=== PATIENT | male | born 1965 | race Two or more races ===

== ENCOUNTER 2022-06-04 09:07 | Inpatient (IN) | payer MEDICAID, OTHER ==
[~2022-06-04] VITALS: Ht 177.8 cm; Wt 117.7 kg
[2022-06-04] MEDS ORDERED: dilTIAZem 25 MG/5 ML VIAL IV ONE ×2 (09:30)
[2022-06-04] MEDS ORDERED: LORazepam 2MG/ML-1ML VIAL IV ONE ×2 (09:30)
[2022-06-04] MEDS ORDERED: SODIUM CHLORIDE 0.9% 1,000 ML IV ONE (09:30)
[2022-06-04] MEDS ORDERED: chlordiazePOXIDE HCL 25 MG CAP PO ONE (09:30)
[2022-06-04 09:44] LABS: Basophils # (auto) 0 10 ^3/uL (0-0.2); Basophils % (auto) 0.4 % (0.0-2.0); Eosinophils # (auto) 0 10 ^3/uL (0-0.8); Eosinophils % (auto) 0.1 % (0.0-7.0); Hemoglobin 17.4 g/dL (13.5-17.5); Lymphocytes # (auto) 1.4 10 ^3/uL (0.4-5.4); Lymphocytes % (auto) 18.7 % (10.0-50.0); Mean Corpuscular Hemoglobin 32.9 pg (28.0-32.0); Mean Corpuscular Hgb Conc. 36.1 g/dL (32.0-36.0); Monocytes # (auto) 0.3 10 ^3/uL (0-1.3); Monocytes % (auto) 3.7 % (0.0-12.0); Neutrophils # (auto) 5.8 10 ^3/uL (1.6-8.6); Neutrophils % (auto) 77.1 % (37.0-80.0); Nucleated Red Blood Cells % 0.2 %; Red Blood Cells 5.28 10^6/uL (4.5-5.90); Red Cell Distribution Width 14.8 % (11.8-14.3); White Blood Cell 7.5 10^3/uL (4.4-10.8)
[2022-06-04 09:56] LABS: Albumin 4.8 g/dL (3.4-5.0); Calcium 9.1 mg/dL (8.5-10.1); Magnesium 1.4 mg/dL (1.6-2.6); Potassium 3.4 mmol/L (3.5-5.1)
[2022-06-04 10:01] LABS: BUN/Creatinine Ratio 4.1; Bilirubin, Total 3.6 mg/dL (0.2-1.0); Total Protein 9.4 g/dL (6.4-8.2)
[2022-06-04] MEDS ORDERED: dilTIAZem 120MG ER CAP PO ONE (10:15)
[2022-06-04 10:39] LABS: Lactic Acid w/Reflex 12.4 mmol/L (0.4-2.0)
[2022-06-04] MEDS ORDERED: POTASSIUM EFFERVESENT TAB 25 MEQ PO ONE (12:30)
[2022-06-04] MEDS ORDERED: dilTIAZem 125mg/125ml BAG KIT 125 ML IV ONE (12:30)
[2022-06-04] MEDS ORDERED: MAGNESIUM SULFATE 1GM/100ML 100 ML IV ONE ×2 (12:30→15:15)
[2022-06-04] MEDS ORDERED: DOCUSATE SOD 100 MG CAP PO PRN (14:00)
[2022-06-04] MEDS ORDERED: ONDANSETRON HCL 4 MG/2 ML VIAL IV PRN (14:00)
[2022-06-04] MEDS ORDERED: chlordiazePOXIDE HCL 25 MG CAP PO PRN (14:00)
[2022-06-04] MEDS ORDERED: SODIUM CHLORIDE 0.9% 1,000 ML IV SCH (14:00)
[2022-06-04] MEDS ORDERED: MORPHINE SULFATE INJ 2 MG/ml SYRG IV PRN (14:00)
[2022-06-04] MEDS ORDERED: NITROGLYCERIN 0.4 MG SL TAB SL PRN (14:00)
[2022-06-04] MEDS ORDERED: DEXTROSE (50%) 50ML SYRG IV PRN (14:15)
[2022-06-04] MEDS ORDERED: ENOXAPARIN SOD 40 MG/0.4 ML SYRINGE SC ONE (14:45)
[2022-06-04 14:54] LABS: Folate (Folic Acid) 14.62 ng/mL (5.38-24)
[2022-06-04] MEDS ORDERED: METOPROLOL TARTRATE 1MG/1ML-5ML VIAL IV ONE (15:15)
[2022-06-04] MEDS ORDERED: DIGOXIN (250MCG/ML) 2 ML AMPULE IV ONE (15:15)
[2022-06-04] MEDS: ACCU-CHEK COMFORT CURVE STRIP VI SCH ×2 (18:02→23:41)
[2022-06-04] MEDS: InsuLIN REG 1unit/0.01ml Soln (100units/ml) SC SCH ×2 (18:02→23:41)
[2022-06-04] MEDS: FOLIC ACID 1 MG, MULTIPLE VITAMIN 10 ML, MAGNESIUM SULF SDV 50% 8 MEQ, THIAMINE INJ 100... INJ SCH ×5 (18:04)
[2022-06-04] MEDS: MAGNESIUM SULFATE 1GM/100ML 100 ML IV SCH ×2 (18:43→23:29)
[2022-06-04] MEDS: ENOXAPARIN SOD 120 MG/0.8 ML SYRINGE SC SCH (23:37)
[2022-06-05 05:33] LABS: Basophils # (auto) 0 10 ^3/uL (0-0.2); Basophils % (auto) 0.6 % (0.0-2.0); Eosinophils # (auto) 0 10 ^3/uL (0-0.8); Eosinophils % (auto) 0.6 % (0.0-7.0); Hemoglobin 13.4 g/dL (13.5-17.5); Lymphocytes # (auto) 2.1 10 ^3/uL (0.4-5.4); Lymphocytes % (auto) 44.9 % (10.0-50.0); Mean Corpuscular Hemoglobin 32.5 pg (28.0-32.0); Mean Corpuscular Hgb Conc. 36.3 g/dL (32.0-36.0); Mean Corpuscular Volume 89.6 fL (80.0-100.0); Monocytes # (auto) 0.4 10 ^3/uL (0-1.3); Monocytes % (auto) 8.4 % (0.0-12.0); Neutrophils # (auto) 2.2 10 ^3/uL (1.6-8.6); Neutrophils % (auto) 45.5 % (37.0-80.0); Nucleated Red Blood Cells % 0.1 %; Red Blood Cells 4.13 10^6/uL (4.5-5.90); Red Cell Distribution Width 14.6 % (11.8-14.3); White Blood Cell 4.7 10^3/uL (4.4-10.8)
[2022-06-05 05:54] LABS: Albumin 3.5 g/dL (3.4-5.0); Calcium 8.2 mg/dL (8.5-10.1); Magnesium 2.4 mg/dL (1.6-2.6); Potassium 3.3 mmol/L (3.5-5.1)
[2022-06-05 05:56] LABS: Cholesterol 172 mg/dL (< 200); HDL Cholesterol 69 mg/dL (40-59); LDL Cholesterol 109 mg/dL (< 100); Triglycerides 80 mg/dL (< 150)
[2022-06-05 05:58] LABS: BUN/Creatinine Ratio 9.5; Bilirubin, Total 3.6 mg/dL (0.2-1.0); Total Protein 6.7 g/dL (6.4-8.2)
[2022-06-05] MEDS: InsuLIN REG 1unit/0.01ml Soln (100units/ml) SC SCH ×4 (06:39→22:00)
[2022-06-05] MEDS: ACCU-CHEK COMFORT CURVE STRIP VI SCH ×4 (06:39→22:00)
[2022-06-05] MEDS ORDERED: DIGOXIN (250MCG/ML) 2 ML AMPULE IV ONE (09:15)
[2022-06-05] MEDS ORDERED: POTASSIUM CHL 20 Meq TABLET PO ONE (09:15)
[2022-06-05] MEDS: POTASSIUM CHL 20 Meq TABLET PO SCH (09:38)
[2022-06-05] MEDS: ENOXAPARIN SOD 120 MG/0.8 ML SYRINGE SC SCH ×2 (09:40→21:26)
[2022-06-05] MEDS ORDERED: ENOXAPARIN SOD 40 MG/0.4 ML SYRINGE SC SCH (10:00)
[2022-06-05] MEDS ORDERED: METOPROLOL SUCCINATE XL 50 MG TAB PO SCH (10:00)
[2022-06-05] MEDS ORDERED: FOLIC ACID 1 MG TAB PO SCH (10:00)
[2022-06-05] MEDS ORDERED: PANTOPRAZOLE 40 MG/10 ML VIAL INJ IV SCH (10:00)
[2022-06-05] MEDS ORDERED: MULTIPLE VITAMIN TAB PO SCH (10:00)
[2022-06-05 10:12] LABS: Urine Bacteria FEW /hpf (None Seen); Urine Blood Negative /uL (Negative); Urine Budding Yeast MODERATE /hpf (None Seen); Urine Specific Gravity 1.023 (1.001-1.035); Urine WBC 9 /hpf (0 - 3); Urine WBC Clumps PRESENT /hpf (None Seen)
[2022-06-05 10:22] LABS: Amphetamine Screen, Urine NEGATIVE (NEGATIVE); Barbiturate Scree,Urine NEGATIVE (NEGATIVE); Benzodiazephine Screen, Urine POSITIVE (NEGATIVE); Cannabinoid Screen, Urine NEGATIVE (NEGATIVE); Cocaine Screen, Urine NEGATIVE (NEGATIVE); Opiate Scree,Urine POSITIVE (NEGATIVE); Phencyclidine Screen, Urine NEGATIVE (NEGATIVE)
[2022-06-05] MEDS ORDERED: FOLIC ACID 1 MG, MULTIPLE VITAMIN 10 ML, MAGNESIUM SULF SDV 50% 8 MEQ, THIAMINE INJ 100... INJ SCH ×5 (12:00)
[2022-06-05] MEDS: FOLIC ACID 1 MG, MULTIPLE VITAMIN 10 ML, MAGNESIUM SULF SDV 50% 8 MEQ, THIAMINE INJ 100... INJ SCH ×5 (12:53)
[2022-06-05 14:22] VITALS: BP 129/69
[2022-06-05 14:47] VITALS: BP 129/69
[2022-06-05] MEDS ORDERED: GABA300C10 PO (16:36)
[2022-06-05] MEDS ORDERED: POTA1TAB4 PO (16:36)
[2022-06-05] MEDS ORDERED: APIX5TAB PO (16:36)
[2022-06-05] MEDS ORDERED: HYDR50CA2 PO (16:36)
[2022-06-05] MEDS ORDERED: FURO40TA4 PO (16:36)
[2022-06-05] MEDS ORDERED: DOXE50CA PO (16:36)
[2022-06-05] MEDS ORDERED: FLUO20TA34 PO (16:36)
[2022-06-05] MEDS ORDERED: METH750T22 PO (16:36)
[2022-06-05] MEDS ORDERED: MET25T PO (16:36)
[2022-06-05] MEDS ORDERED: CLON0.1T PO (16:36)
[2022-06-05 17:00] VITALS: BP 137/69
[2022-06-05 20:00] VITALS: BP 129/59
[2022-06-05] MEDS: METOPROLOL TARTRATE 50 MG TAB PO SCH (21:26)
[2022-06-05 22:00] VITALS: BP 129/59
[2022-06-06 04:36] VITALS: BP 136/85
[2022-06-06] MEDS: InsuLIN REG 1unit/0.01ml Soln (100units/ml) SC SCH ×2 (06:33→11:30)
[2022-06-06] MEDS: ACCU-CHEK COMFORT CURVE STRIP VI SCH ×2 (06:33→11:30)
[2022-06-06 08:49] VITALS: BP 143/85
[2022-06-06] MEDS ORDERED: DIGOXIN 0.125 MG TAB PO SCH (10:00)
[2022-06-06] MEDS: POTASSIUM CHL 20 Meq TABLET PO SCH (10:13)
[2022-06-06] MEDS: METOPROLOL TARTRATE 50 MG TAB PO SCH (10:14)
[2022-06-06] MEDS: ENOXAPARIN SOD 120 MG/0.8 ML SYRINGE SC SCH (10:15)
[2022-06-06] MEDS: FOLIC ACID 1 MG, MULTIPLE VITAMIN 10 ML, MAGNESIUM SULF SDV 50% 8 MEQ, THIAMINE INJ 100... INJ SCH ×5 (12:00)
[2022-06-06] MEDS ORDERED: APIX5TAB PO (12:20)
[2022-06-06] MEDS ORDERED: MET50T PO (12:20)
[2022-06-06 13:00] VITALS: BP 135/93
[2022-06-06 15:01] VITALS: BP 135/93
[2022-06-06] MEDS ORDERED: APIXABAN 5 MG TAB PO SCH (22:00)
== END 2022-06-06 15:50 | disposition home or self-care (01) | DRG 201 ==
LOC: ER 09:07 → TELE 14:05 → TELE-CENTR 06-05 14:24
PROVIDERS: ADMIT Nurse Practitioner Family; ATTEND Student in an Organized Health Care Education/Training Program
DX: I48.91 Unspecified atrial fibrillation (principal); I11.0 Hypertensive heart disease with heart failure; I50.9 Heart failure, unspecified; E66.9 Obesity, unspecified; E83.42 Hypomagnesemia; E86.0 Dehydration; E87.6 Hypokalemia; F10.129 Alcohol abuse with intoxication, unspecified; F32.A Depression, unspecified; Z20.822 Contact with and (suspected) exposure to COVID-19; F10.139 Alcohol abuse with withdrawal, unspecified; R79.89 Other specified abnormal findings of blood chemistry; F41.9 Anxiety disorder, unspecified; I16.0 Hypertensive urgency; Z79.01 Long term (current) use of anticoagulants; Z79.899 Other long term (current) drug therapy; Z68.37 Body mass index [BMI] 37.0-37.9, adult
CPT/HCPCS: 36415; 71045; 80053; 80061; 80307; 81001; 82607; 82746; 82962; 83036; 83605; 83735; 83880; 84100; 84132; 84443; 84484; 85025; 93005; 93306; 96361; 96365; 96375; 99291; C9113; G0378; J2405

== ENCOUNTER 2022-09-16 05:54 | Inpatient (IN) | payer MEDICAID ==
[~2022-09-16] VITALS: Ht 175.3 cm; Wt 117.9 kg
[~2022-09-16 05:54] MED LIST: APIX5TAB PO; CLON0.1T PO; DOXE50CA PO; FLUO20TA34 PO; FURO40TA4 PO; GABA300C10 PO; HYDR50CA2 PO; MET25T PO; MET50T PO; METH750T22 PO; POTA1TAB4 PO
[2022-09-16 06:28] LABS: Basophils # (auto) 0 10 ^3/uL (0-0.2); Eosinophils # (auto) 0 10 ^3/uL (0-0.8); Eosinophils % (auto) 0.1 % (0.0-7.0); Hemoglobin 13.4 g/dL (13.5-17.5); Mean Corpuscular Hemoglobin 35.2 pg (28.0-32.0); Monocytes # (auto) 0.6 10 ^3/uL (0-1.3); Monocytes % (auto) 5.9 % (0.0-12.0)
[2022-09-16 06:31] LABS: Basophils % (auto) 0.3 % (0.0-2.0); Hematocrit 38.4 % (41.0-53.0); Lymphocytes % (auto) 19.3 % (10.0-50.0); Mean Corpuscular Hgb Conc. 34.8 g/dL (32.0-36.0); Mean Corpuscular Volume 101.1 fL (80.0-100.0); Neutrophils # (auto) 7.5 10 ^3/uL (1.6-8.6); Neutrophils % (auto) 74.4 % (37.0-80.0); Nucleated Red Blood Cells % 0.2 %; White Blood Cell 10.2 10^3/uL (4.4-10.8)
[2022-09-16 06:52] LABS: Albumin 3.6 g/dL (3.4-5.0); Calcium 8.1 mg/dL (8.5-10.1)
[2022-09-16 06:54] LABS: BUN/Creatinine Ratio 4.7
[2022-09-16 06:56] LABS: Potassium 2.9 mmol/L (3.5-5.1)
[2022-09-16] MEDS ORDERED: POTASSIUM CHL 20 Meq TABLET PO ONE (07:00)
[2022-09-16 07:15] LABS: Bilirubin, Total 2.4 mg/dL (0.2-1.0); Total Protein 6.9 g/dL (6.4-8.2)
[2022-09-16] MEDS ORDERED: HYDROmorphone HCL 2 MG/ML VL/or syr IV ONE (08:00)
[2022-09-16] MEDS ORDERED: METOCLOPRAMIDE HCL 5MG/ml INJ 2ml VIAL IV ONE (08:00)
[2022-09-16] MEDS ORDERED: SODIUM CHLORIDE 0.9% 1,000 ML IV ONE (08:00)
[2022-09-16] MEDS ORDERED: SODIUM CHLORIDE 0.9% 500 ML IVB ONE (08:00)
[2022-09-16 08:54] LABS: Urine Bacteria NONE SEEN /hpf (None Seen); Urine Blood Negative /uL (Negative); Urine Hyaline Cast FEW /lpf (0 - 2); Urine Specific Gravity 1.007 (1.001-1.035); Urine WBC <1 /hpf (0 - 3)
[2022-09-16] MEDS ORDERED: dilTIAZem 25 MG/5 ML VIAL IV ONE (13:15)
[2022-09-16] MEDS ORDERED: cefTRIAXone 1GM/50ML D5W 50 ML IV ONE (13:15)
[2022-09-16] MEDS ORDERED: THIAMINE HCL 100 MG TAB PO ONE (13:45)
[2022-09-16] MEDS ORDERED: B-COMPLEX W/ C & FOLIC ACID(NEPHROVITE TAB) PO ONE (13:45)
[2022-09-16] MEDS ORDERED: NITROGLYCERIN 0.4 MG SL TAB SL PRN (13:45)
[2022-09-16] MEDS ORDERED: PANTOPRAZOLE 40 MG/10 ML VIAL INJ IV ONE (13:45)
[2022-09-16] MEDS ORDERED: ACETAMINOPHEN 325 MG TAB PO PRN (13:45)
[2022-09-16] MEDS ORDERED: LORazepam 0.5 MG TAB PO PRN (13:45)
[2022-09-16] MEDS ORDERED: MORPHINE SULFATE INJ 2 MG/ml SYRG IV PRN (13:45)
[2022-09-16] MEDS ORDERED: AZITHROMYCIN 500MG/ 250ML 250 ML IV ONE (13:45)
[2022-09-16] MEDS ORDERED: LORazepam 2MG/ML-1ML VIAL IV ONE (13:57)
[2022-09-16] MEDS ORDERED: cloNIDine HCL 0.1 MG TAB PO PRN (14:00)
[2022-09-16] MEDS ORDERED: POTASSIUM CHL 20MEQ/100ML 100 ML IV ONE (14:00)
[2022-09-16] MEDS ORDERED: hydrALAZINE HCL 20 MG/ML VL IV PRN (14:00)
[2022-09-16] MEDS: SODIUM CHLORIDE 0.9% 1,000 ML IV SCH (14:25)
[2022-09-16] MEDS: MAGNESIUM SULFATE 1GM/100ML 100 ML IV SCH ×2 (14:25→14:30)
[2022-09-16] MEDS: GABAPENTIN 300 MG CAP PO SCH ×2 (14:36→23:16)
[2022-09-16 14:53] LABS: INR 1.18 (0.9-1.15)
[2022-09-16] MEDS ORDERED: ASPirin 325 MG TAB PO ONE (15:00)
[2022-09-16] MEDS: METOPROLOL TARTRATE 50 MG TAB PO SCH (16:43)
[2022-09-16] MEDS: LORazepam 2MG/ML-1ML VIAL IV PRN (17:02)
[2022-09-17] MEDS ORDERED: ONDANSETRON HCL 4 MG/2 ML VIAL IV PRN (03:30)
[2022-09-17 04:55] LABS: Eosinophils # (auto) 0 10 ^3/uL (0-0.8); Hematocrit 37.5 % (41.0-53.0); Mean Corpuscular Hgb Conc. 34.7 g/dL (32.0-36.0); Red Cell Distribution Width 14.4 % (11.8-14.3)
[2022-09-17 04:58] LABS: Basophils # (auto) 0.1 10 ^3/uL (0-0.2); Basophils % (auto) 0.8 % (0.0-2.0); Lymphocytes % (auto) 12.3 % (10.0-50.0); Mean Corpuscular Hemoglobin 35.1 pg (28.0-32.0); Mean Corpuscular Volume 101.1 fL (80.0-100.0); Monocytes # (auto) 0.5 10 ^3/uL (0-1.3); Monocytes % (auto) 5.8 % (0.0-12.0); Neutrophils # (auto) 6.4 10 ^3/uL (1.6-8.6); Neutrophils % (auto) 81.1 % (37.0-80.0); Nucleated Red Blood Cells % 0.1 %; Red Blood Cells 3.71 10^6/uL (4.5-5.90); White Blood Cell 7.9 10^3/uL (4.4-10.8)
[2022-09-17 05:06] LABS: Albumin 3.1 g/dL (3.4-5.0); BUN/Creatinine Ratio 10.8; Calcium 7.8 mg/dL (8.5-10.1); Potassium 3.8 mmol/L (3.5-5.1)
[2022-09-17 05:09] LABS: Bilirubin, Total 3.3 mg/dL (0.2-1.0); Total Protein 6.8 g/dL (6.4-8.2)
[2022-09-17] MEDS: GABAPENTIN 300 MG CAP PO SCH ×3 (05:33→21:24)
[2022-09-17] MEDS: SODIUM CHLORIDE 0.9% 1,000 ML IV SCH ×2 (05:33→23:05)
[2022-09-17] MEDS: METOPROLOL TARTRATE 50 MG TAB PO SCH ×2 (06:35→21:24)
[2022-09-17] MEDS: cefTRIAXone 1GM/50ML D5W 50 ML IV SCH (09:19)
[2022-09-17] MEDS ORDERED: APIXABAN 5 MG TAB PO SCH (10:00)
[2022-09-17] MEDS ORDERED: AZITHROMYCIN 500MG/ 250ML 250 ML IV SCH (10:00)
[2022-09-17] MEDS ORDERED: ENOXAPARIN SOD 40 MG/0.4 ML SYRINGE SC SCH (10:00)
[2022-09-17] MEDS: APIXABAN 5 MG TAB PO SCH (10:35)
[2022-09-17] MEDS: PANTOPRAZOLE 40 MG/10 ML VIAL INJ IV SCH (10:35)
[2022-09-17] MEDS: B-COMPLEX W/ C & FOLIC ACID(NEPHROVITE TAB) PO SCH (10:35)
[2022-09-17] MEDS: ASPirin 81 mg TAB PO SCH (10:35)
[2022-09-17] MEDS: THIAMINE HCL 100 MG TAB PO SCH (10:35)
[2022-09-17] MEDS: DOXYCYCLINE 100MG/250ML 250 ML IV SCH ×2 (10:36→21:23)
[2022-09-17] MEDS: FLUoxetine HCL 20 MG CAP PO SCH (10:36)
[2022-09-17] MEDS: DOXEPIN HCL 25 MG CAPSULE PO SCH (10:58)
[2022-09-17] MEDS ORDERED: chlordiazePOXIDE HCL 25 MG CAP PO PRN (11:00)
[2022-09-17 12:59] LABS: Hepatitis A Ab IgM Negative
[2022-09-17 13:00] LABS: Hepatitis B Core IgM Negative; Hepatitis C Antibody Negative (Negative)
[2022-09-17 13:14] VITALS: BP 122/78
[2022-09-17 17:45] LABS: Cholesterol 173 mg/dL (< 200); HDL Cholesterol 73 mg/dL (40-59); LDL Cholesterol 97 mg/dL (< 100); Triglycerides 112 mg/dL (< 150)
[2022-09-17 18:56] LABS: Alcohol, Urine < 3.0 mg/dL (0-10); Amphetamine Screen, Urine NEGATIVE (NEGATIVE); Barbiturate Scree,Urine NEGATIVE (NEGATIVE); Benzodiazephine Screen, Urine NEGATIVE (NEGATIVE); Cannabinoid Screen, Urine NEGATIVE (NEGATIVE); Cocaine Screen, Urine NEGATIVE (NEGATIVE); Opiate Scree,Urine NEGATIVE (NEGATIVE); Phencyclidine Screen, Urine NEGATIVE (NEGATIVE)
[2022-09-17 22:00] VITALS: BP 141/78
[2022-09-18] MEDS: LORazepam 2MG/ML-1ML VIAL IV PRN
[2022-09-18 05:00] VITALS: BP 130/87
[2022-09-18] MEDS: GABAPENTIN 300 MG CAP PO SCH ×3 (06:19→21:14)
[2022-09-18 08:04] LABS: Basophils # (auto) 0 10 ^3/uL (0-0.2); Nucleated Red Blood Cells % 0.1 %
[2022-09-18 08:08] LABS: Basophils % (auto) 0.5 % (0.0-2.0); Eosinophils # (auto) 0.1 10 ^3/uL (0-0.8); Eosinophils % (auto) 0.7 % (0.0-7.0); Hematocrit 33.3 % (41.0-53.0); Lymphocytes # (auto) 2.2 10 ^3/uL (0.4-5.4); Lymphocytes % (auto) 27.4 % (10.0-50.0); Mean Corpuscular Hemoglobin 36.1 pg (28.0-32.0); Mean Corpuscular Hgb Conc. 36.1 g/dL (32.0-36.0); Mean Corpuscular Volume 100.1 fL (80.0-100.0); Monocytes # (auto) 0.3 10 ^3/uL (0-1.3); Monocytes % (auto) 4.3 % (0.0-12.0); Neutrophils # (auto) 5.3 10 ^3/uL (1.6-8.6); Neutrophils % (auto) 67.1 % (37.0-80.0); Red Blood Cells 3.33 10^6/uL (4.5-5.90); White Blood Cell 7.9 10^3/uL (4.4-10.8)
[2022-09-18 08:24] LABS: Calcium 7.8 mg/dL (8.5-10.1); Potassium 3.3 mmol/L (3.5-5.1)
[2022-09-18] MEDS: cefTRIAXone 1GM/50ML D5W 50 ML IV SCH (09:14)
[2022-09-18] MEDS: SODIUM CHLORIDE 0.9% 1,000 ML IV SCH (09:17)
[2022-09-18] MEDS: FLUoxetine HCL 20 MG CAP PO SCH (09:25)
[2022-09-18] MEDS: THIAMINE HCL 100 MG TAB PO SCH (09:25)
[2022-09-18] MEDS: B-COMPLEX W/ C & FOLIC ACID(NEPHROVITE TAB) PO SCH (09:26)
[2022-09-18] MEDS: APIXABAN 5 MG TAB PO SCH (09:26)
[2022-09-18] MEDS: ASPirin 81 mg TAB PO SCH (09:26)
[2022-09-18] MEDS: METOPROLOL TARTRATE 50 MG TAB PO SCH ×2 (09:27→21:14)
[2022-09-18] MEDS: DOXYCYCLINE 100MG/250ML 250 ML IV SCH ×2 (09:27→21:14)
[2022-09-18] MEDS: PANTOPRAZOLE 40 MG/10 ML VIAL INJ IV SCH (09:27)
[2022-09-18 09:30] VITALS: BP 128/77
[2022-09-18] MEDS: DOXEPIN HCL 25 MG CAPSULE PO SCH (10:00)
[2022-09-18 13:00] VITALS: BP 158/87
[2022-09-18 16:50] VITALS: BP 140/86
[2022-09-18 22:00] VITALS: BP 128/84
[2022-09-19 05:00] VITALS: BP 121/79
[2022-09-19] MEDS: GABAPENTIN 300 MG CAP PO SCH ×2 (06:05→14:43)
[2022-09-19 07:06] LABS: Basophils # (auto) 0 10 ^3/uL (0-0.2); Basophils % (auto) 0.5 % (0.0-2.0); Eosinophils # (auto) 0.1 10 ^3/uL (0-0.8); Eosinophils % (auto) 0.9 % (0.0-7.0); Hemoglobin 11.5 g/dL (13.5-17.5); Monocytes # (auto) 0.4 10 ^3/uL (0-1.3)
[2022-09-19 07:09] LABS: Lymphocytes # (auto) 1.6 10 ^3/uL (0.4-5.4); Lymphocytes % (auto) 22.2 % (10.0-50.0); Mean Corpuscular Hemoglobin 35.8 pg (28.0-32.0); Mean Corpuscular Hgb Conc. 35.8 g/dL (32.0-36.0); Mean Corpuscular Volume 99.9 fL (80.0-100.0); Monocytes % (auto) 5.4 % (0.0-12.0); Neutrophils # (auto) 5.2 10 ^3/uL (1.6-8.6); Red Cell Distribution Width 13.8 % (11.8-14.3); White Blood Cell 7.3 10^3/uL (4.4-10.8)
[2022-09-19 07:30] LABS: Calcium 7.6 mg/dL (8.5-10.1); Potassium 3.2 mmol/L (3.5-5.1)
[2022-09-19 07:32] LABS: BUN/Creatinine Ratio 15.9
[2022-09-19 09:07] VITALS: BP 121/79
[2022-09-19] MEDS: DOXEPIN HCL 25 MG CAPSULE PO SCH (10:00)
[2022-09-19] MEDS: cefTRIAXone 1GM/50ML D5W 50 ML IV SCH (10:18)
[2022-09-19] MEDS: PANTOPRAZOLE 40 MG/10 ML VIAL INJ IV SCH (10:18)
[2022-09-19] MEDS: FLUoxetine HCL 20 MG CAP PO SCH (10:19)
[2022-09-19] MEDS: APIXABAN 5 MG TAB PO SCH (10:19)
[2022-09-19] MEDS: B-COMPLEX W/ C & FOLIC ACID(NEPHROVITE TAB) PO SCH (10:19)
[2022-09-19] MEDS: ASPirin 81 mg TAB PO SCH (10:19)
[2022-09-19] MEDS: SODIUM CHLORIDE 0.9% 1,000 ML IV SCH (10:20)
[2022-09-19] MEDS: METOPROLOL TARTRATE 50 MG TAB PO SCH (10:20)
[2022-09-19] MEDS: THIAMINE HCL 100 MG TAB PO SCH (10:20)
[2022-09-19] MEDS ORDERED: POTASSIUM EFFERVESENT TAB 25 MEQ GT ONE (11:00)
[2022-09-19] MEDS ORDERED: AMOX500T86 PO (11:03)
[2022-09-19] MEDS: DOXYCYCLINE 100MG/250ML 250 ML IV SCH (11:33)
[2022-09-19 13:00] VITALS: BP 112/79
[2022-09-19 13:59] VITALS: BP 121/79
[2022-09-20] MEDS ORDERED: AMOX500T86 PO (11:00)
== END 2022-09-19 15:27 | disposition home or self-care (01) | DRG 198 ==
LOC: ER 05:54 → TELE 13:46 → TELE-E-ADS 09-17 11:58 → TELE-EAST 09-17 18:26
PROVIDERS: ADMIT Nurse Practitioner Family; ATTEND Internal Medicine Pulmonary Disease
DX: I24.9 Acute ischemic heart disease, unspecified (principal); I85.10 Secondary esophageal varices without bleeding; I11.0 Hypertensive heart disease with heart failure; J18.9 Pneumonia, unspecified organism; I50.9 Heart failure, unspecified; E66.01 Morbid (severe) obesity due to excess calories; Z20.822 Contact with and (suspected) exposure to COVID-19; K70.30 Alcoholic cirrhosis of liver without ascites; E83.42 Hypomagnesemia; E87.6 Hypokalemia; F10.229 Alcohol dependence with intoxication, unspecified; F10.239 Alcohol dependence with withdrawal, unspecified; I16.0 Hypertensive urgency; I48.0 Paroxysmal atrial fibrillation; K76.0 Fatty (change of) liver, not elsewhere classified; Z79.01 Long term (current) use of anticoagulants; Z91.199 Patient's noncompliance with other medical treatment and regimen due to unspecified reason; Z82.0 Family history of epilepsy and other diseases of the nervous system; Z68.38 Body mass index [BMI] 38.0-38.9, adult
CPT/HCPCS: 36415; 71045; 74176; 80048; 80053; 80061; 80074; 80307; 81001; 82140; 83036; 83690; 83735; 84443; 84484; 85025; 85379; 85610; 87040; 87426; 93005; 93306; 96361; 96374; 96375; C9113; G0378; J0696; J2405; J3480; J3490

== ENCOUNTER 2023-02-02 18:41 | Inpatient (IN) | payer MEDICAID ==
[~2023-02-02] VITALS: Ht 185.4 cm; Wt 86.3 kg
[~2023-02-02 18:41] MED LIST changes: +AMOX500T86 PO; -FLUO20TA34 PO; +FLUO20TA36 PO; +GABA-1250 PO; -GABA300C10 PO; +METH-1182 PO; -METH750T22 PO
[2023-02-02 19:40] LABS: Basophils # (auto) 0 10 ^3/uL (0-0.2); Basophils % (auto) 0.3 % (0.0-2.0); Eosinophils # (auto) 0.1 10 ^3/uL (0-0.8); Eosinophils % (auto) 2.1 % (0.0-7.0); Hematocrit 37.6 % (41.0-53.0); Lymphocytes # (auto) 1.6 10 ^3/uL (0.4-5.4); Lymphocytes % (auto) 27.3 % (10.0-50.0); Mean Corpuscular Hemoglobin 33.6 pg (28.0-32.0); Mean Corpuscular Hgb Conc. 34.7 g/dL (32.0-36.0); Mean Corpuscular Volume 96.8 fL (80.0-100.0); Monocytes # (auto) 0.6 10 ^3/uL (0-1.3); Monocytes % (auto) 9.4 % (0.0-12.0); Neutrophils # (auto) 3.6 10 ^3/uL (1.6-8.6); Neutrophils % (auto) 60.9 % (37.0-80.0); Nucleated Red Blood Cells % 0.1 %; Red Blood Cells 3.89 10^6/uL (4.5-5.90); Red Cell Distribution Width 14.3 % (11.8-14.3); White Blood Cell 5.9 10^3/uL (4.4-10.8)
[2023-02-02 19:44] LABS: Albumin 3.3 g/dL (3.4-5.0); Calcium 8.4 mg/dL (8.5-10.1); Potassium 3.7 mmol/L (3.5-5.1)
[2023-02-02 19:47] LABS: BUN/Creatinine Ratio 7.2 (10.0-20.0); Bilirubin, Total 0.8 mg/dL (0.2-1.0); Total Protein 7.1 g/dL (6.4-8.2)
[2023-02-02] MEDS ORDERED: dilTIAZem 25 MG/5 ML VIAL IV ONE (20:15)
[2023-02-03] MEDS ORDERED: HYDROcodone-ACET 5/325MG TAB PO ONE
[2023-02-03] MEDS ORDERED: SODIUM CHLORIDE 0.9% 1,000 ML IV ONE
[2023-02-03] MEDS ORDERED: ACETAMINOPHEN 325 MG TAB PO PRN (01:15)
[2023-02-03] MEDS ORDERED: NITROGLYCERIN 0.4 MG SL TAB SL PRN (01:15)
[2023-02-03] MEDS ORDERED: METOPROLOL SUCCINATE XL 50 MG TAB PO ONE (01:15)
[2023-02-03] MEDS ORDERED: MORPHINE SULFATE INJ 2 MG/ml SYRG IV PRN (01:15)
[2023-02-03] MEDS ORDERED: ONDANSETRON HCL 4 MG/2 ML VIAL IV PRN (01:15)
[2023-02-03] MEDS ORDERED: TEMAZEPAM 15 MG CAP PO PRN (01:15)
[2023-02-03 02:00] LABS: INR 1.21 (0.9-1.15); Partial Thromboplastin Time 29.1 sec (24.6-33.4)
[2023-02-03] MEDS: APIXABAN 5 MG TAB PO SCH ×2 (09:56→23:32)
[2023-02-03] MEDS: HYDROcodone-ACET 5/325MG TAB PO PRN ×2 (09:56→17:24)
[2023-02-03] MEDS: FUROSEMIDE 20 MG TAB PO SCH (09:57)
[2023-02-03] MEDS: METOPROLOL SUCCINATE XL 50 MG TAB PO SCH (09:57)
[2023-02-03] MEDS: MORPHINE SULFATE INJ 2 MG/ml SYRG IV PRN ×2 (14:34→22:25)
[2023-02-03] MEDS ORDERED: ATORVASTATIN 20 MG TAB PO SCH (22:00)
[2023-02-04] MEDS: HYDROcodone-ACET 5/325MG TAB PO PRN ×2 (01:59→09:14)
[2023-02-04] MEDS ORDERED: ATOR20TA50 PO (04:44)
[2023-02-04] MEDS ORDERED: METO-289 PO (04:44)
[2023-02-04] MEDS ORDERED: FUR20T PO (04:44)
[2023-02-04] MEDS ORDERED: FOLI-119 PO (04:44)
[2023-02-04] MEDS ORDERED: LACT10SO3 PO (04:44)
[2023-02-04 05:00] VITALS: BP 103/79
[2023-02-04] MEDS: MORPHINE SULFATE INJ 2 MG/ml SYRG IV PRN (06:41)
[2023-02-04 07:01] LABS: Basophils # (auto) 0 10 ^3/uL (0-0.2); Hematocrit 32.9 % (41.0-53.0); Monocytes # (auto) 0.5 10 ^3/uL (0-1.3); Neutrophils # (auto) 3.2 10 ^3/uL (1.6-8.6); White Blood Cell 5.9 10^3/uL (4.4-10.8)
[2023-02-04 07:06] LABS: Basophils % (auto) 0.4 % (0.0-2.0); Eosinophils # (auto) 0.2 10 ^3/uL (0-0.8); Eosinophils % (auto) 3.3 % (0.0-7.0); Hemoglobin 11.7 g/dL (13.5-17.5); Lymphocytes % (auto) 33.4 % (10.0-50.0); Mean Corpuscular Hemoglobin 33.7 pg (28.0-32.0); Mean Corpuscular Hgb Conc. 35.5 g/dL (32.0-36.0); Mean Corpuscular Volume 94.8 fL (80.0-100.0); Monocytes % (auto) 8.9 % (0.0-12.0); Nucleated Red Blood Cells % 0.3 %; Red Blood Cells 3.47 10^6/uL (4.5-5.90); Red Cell Distribution Width 14.1 % (11.8-14.3)
[2023-02-04 07:08] LABS: Calcium 8.3 mg/dL (8.5-10.1); Potassium 3.7 mmol/L (3.5-5.1)
[2023-02-04 07:14] LABS: Albumin 3.2 g/dL (3.4-5.0); BUN/Creatinine Ratio 14.2 (10.0-20.0); Bilirubin, Total 1.5 mg/dL (0.2-1.0); Total Protein 6.3 g/dL (6.4-8.2)
[2023-02-04 09:00] VITALS: BP 118/71
[2023-02-04] MEDS: APIXABAN 5 MG TAB PO SCH (09:13)
[2023-02-04] MEDS: FUROSEMIDE 20 MG TAB PO SCH (09:13)
[2023-02-04] MEDS: METOPROLOL SUCCINATE XL 50 MG TAB PO SCH (09:15)
[2023-02-04] MEDS ORDERED: NAP500T PO (10:56)
[2023-02-04 13:00] VITALS: BP 122/83
[2023-02-04 14:19] VITALS: BP 118/71
== END 2023-02-04 16:11 | disposition home or self-care (01) | DRG 342 ==
LOC: EDBD 18:41 → ER 18:49 → TELE 02-03 01:21 → TELE-WESTW 02-03 23:15
PROVIDERS: ADMIT Nurse Practitioner; ATTEND Internal Medicine
DX: S82.832A Other fracture of upper and lower end of left fibula, initial encounter for closed fracture (principal); I11.0 Hypertensive heart disease with heart failure; E86.0 Dehydration; I50.9 Heart failure, unspecified; I48.0 Paroxysmal atrial fibrillation; I25.10 Atherosclerotic heart disease of native coronary artery without angina pectoris; M54.50 Low back pain, unspecified; S82.892A Other fracture of left lower leg, initial encounter for closed fracture; W18.39XA Other fall on same level, initial encounter; Y93.89 Activity, other specified; Z82.0 Family history of epilepsy and other diseases of the nervous system; Y92.89 Other specified places as the place of occurrence of the external cause; Y99.8 Other external cause status
CPT/HCPCS: 36415; 71045; 72131; 73610; 73630; 80053; 84484; 85025; 85610; 85730; 87081; 93005; 96360; G0378; J2405